=== PATIENT | female | born 1955 | race Caucasian/White ===

== ENCOUNTER 2024-01-21 15:55 | Emergency (ER) | payer MEDICARE ==
[~2024-01-21] VITALS: Ht 165.1 cm; Wt 67.5 kg
[2024-01-21] MEDS ORDERED: HYDROCODON-ACE1 EAC8 PO (16:22)
[2024-01-21] MEDS ORDERED: VAZALORE81 MG PO (16:22)
[2024-01-21] MEDS ORDERED: SIMVASTATIN20 MG PO (16:23)
[2024-01-21] MEDS ORDERED: CITALOPRAM HBR20 MG PO (16:24)
[2024-01-21] MEDS ORDERED: HYDROCODONE/APAP 10/325 1 TAB PO ONE (18:00)
[2024-01-21] MEDS ORDERED: ACETAMINOPHEN 500 MG TAB PO ONE (18:15)
[2024-01-21] MEDS ORDERED: predniSONE 20 MG TAB PO ONE (18:15)
[2024-01-21] MEDS ORDERED: IBUPROFEN 400 MG TAB PO ONE (18:15)
[2024-01-21] MEDS ORDERED: PREDNISONE20 MG PO (18:16)
[2024-01-21 18:22] VITALS: BP 156/74
== END 2024-01-21 18:24 | disposition home or self-care (01) ==
LOC: ED 15:55
DX: M54.41 Lumbago with sciatica, right side (principal); I10 Essential (primary) hypertension; Z86.711 Personal history of pulmonary embolism; Z88.0 Allergy status to penicillin; Z79.82 Long term (current) use of aspirin; Z79.899 Other long term (current) drug therapy
CPT/HCPCS: 93971; 99283-25; A9270; J7512